=== PATIENT | female | born 1950 | race Caucasian/White ===

== ENCOUNTER → 2023-03-03 | Outpatient (CLI) | payer MEDICARE ==
--- NOTE | 2023-03-03 17:07 | Diagnostic Imaging Report ---
Indication: Pain. Findings: 3 view right shoulder performed. 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 Impression: No acute-appearing abnormality. Dictated by: Dictated on workstation # [id number]
== END ==
LOC: ORTHO 12:24
PROVIDERS: ATTEND Orthopaedic Surgery
DX: M25.511 Pain in right shoulder (principal)
CPT/HCPCS: 73030; G0463; 99203